=== PATIENT | male | born 1995 | race Caucasian/White ===

== ENCOUNTER 2022-04-13 20:32 | Emergency (ER) | payer OTHER ==
[~2022-04-13] VITALS: Ht 162.6 cm; Wt 88.9 kg
[2022-04-13] MEDS ORDERED: METFORMIN HCL500 M2 PO (20:45)
== END 2022-04-13 22:51 | disposition home or self-care (01) ==
LOC: ER 20:32
DX: H92.01 Otalgia, right ear (principal); G89.29 Other chronic pain; Z91.041 Radiographic dye allergy status